=== PATIENT | male | born 2000 | race Caucasian/White ===

== ENCOUNTER 2021-06-11 19:09 | Emergency (ER) | payer BC ==
[~2021-06-11] VITALS: Ht 170.2 cm; Wt 100.0 kg
[2021-06-11 19:34] VITALS: BP 125/86; TEMP 97.5
[2021-06-11 21:47] VITALS: PULSE 89
== END 2021-06-11 21:47 | disposition home or self-care (01) ==
LOC: COL.ER 19:09
DX: S93.401A Sprain of unspecified ligament of right ankle, initial encounter (principal); S90.31XA Contusion of right foot, initial encounter; V86.56XA Driver of dirt bike or motor/cross bike injured in nontraffic accident, initial encounter